=== PATIENT | female | born 1995 ===

== ENCOUNTER 2023-07-14 00:08 | Inpatient (IN) | payer BC ==
[2023-07-14] MEDS ORDERED: Ondansetron 4 MG/2 ML SDV IVPUSH PRN (00:39)
[2023-07-14] MEDS ORDERED: Sodium Chloride 0.9% 10 ML Syringe FLUSH PRN (00:39)
[2023-07-14] MEDS ORDERED: Methylergonovine 0.2 MG/1 ML Amp IM PRN (00:39)
[2023-07-14] MEDS ORDERED: Sodium Chloride 0.9% 20 ML SDV IV PRN (00:39)
[2023-07-14] MEDS ORDERED: Carboprost Tromethamine 250 MCG/1 mL Vial IM PRN (00:39)
[2023-07-14] MEDS ORDERED: Water For Irrigation,Sterile 1,000 ML Container IRR PRN (00:39)
[2023-07-14] MEDS ORDERED: Sodium Chloride 0.9% 2.5 ML Syringe FLUSH PRN (00:39)
[2023-07-14] MEDS ORDERED: Lidocaine 1% 50 ML MDV INJECT PRN (00:39)
[2023-07-14] MEDS ORDERED: Misoprostol 200 MCG Tab PO PRN (00:39)
[2023-07-14] MEDS ORDERED: Tranexamic Acid IN NACL,ISO-OS 1,000 MG in Premix Bag 1 BAG IV PRN (00:39)
[2023-07-14] MEDS ORDERED: Terbutaline 1 MG/ML SDV SUBCUT PRN (00:42)
[2023-07-14] MEDS ORDERED: Misoprostol 25 MCG (1/4 of 100 MCG) Tab VAG PRN (00:42)
[2023-07-14] MEDS ORDERED: Oxytocin/0.9 % Sodium Chloride 30 UNIT/500 ML BAG IV SCH (00:45)
[2023-07-14 01:02] LABS: HEMATOCRIT 36.5 % (37.0-47.0); HEMOGLOBIN 12.1 g/dL (12.0-16.0); MEAN CORPUSCULAR HEMOGLOBIN 26.2 pg (28.0-32.0); MEAN CORPUSCULAR HGB CONC 33.2 g/dL (32.0-36.0); MEAN CORPUSCULAR VOLUME 79.2 fL (83.0-99.0); MEAN PLATELET VOLUME 11.4 fL (9.4-12.3); PLATELET COUNT,PLT 266 K/uL (150-400); RED BLOOD CELL COUNT 4.61 M/uL (4.10-5.30); WHITE BLOOD CELL COUNT,WBC 8.46 K/uL (3.9-11.3)
[2023-07-14] MEDS: Lactated Ringers 1,000 ML IV SCH (01:15)
[2023-07-14] MEDS: Oxytocin/0.9 % Sodium Chloride 30 UNIT/500 ML BAG IV SCH (02:40)
[2023-07-14] MEDS: Butorphanol 2 MG/ML SDV IVPUSH PRN (03:14)
[2023-07-14] MEDS: Ropivacaine HCl/PF 400 MG in Premix Bag 1 BAG EPIDUR SCH (05:28)
[2023-07-14] MEDS ORDERED: ePHEDrine 50 MG/ML SDV IVPUSH PRN ×2 (05:39)
[2023-07-14] MEDS ORDERED: Phenylephrine HCl In 0.9% NaCl 1 MG/10 ML Syringe IVPUSH PRN (05:39)
[2023-07-14] MEDS ORDERED: Docusate Sodium 100 MG Cap PO PRN (09:30)
[2023-07-14] MEDS ORDERED: oxyCODONE 5 MG Tab PO PRN (09:30)
[2023-07-14] MEDS: Bupivacaine 0.5% 10 ML SDV ONE (09:52)
[2023-07-14] MEDS: Ropivacaine HCl/PF 200 ML ONE (09:53)
[2023-07-14] MEDS: Phenylephrine HCl In 0.9% NaCl 1 MG/10 ML Syringe ONE (09:53)
[2023-07-14 10:01] LABS: PH,UMBILICAL ARTERIAL 7.205 (7.18-7.38); PH,UMBILICAL VENOUS 7.251 (7.25-7.45)
[2023-07-14] MEDS: Witch Hazel Medicated Pads 40/Jar TOP PRN (16:16)
[2023-07-14] MEDS: Benzocaine/Menthol 20%-0.5% Spray 78 GM Cannister TOP PRN (16:16)
[2023-07-14] MEDS: Ibuprofen 800 MG Tab PO PRN (16:16)
[2023-07-14] MEDS: Lanolin 100% Cream 7 GM Tube TOP PRN (16:16)
[2023-07-14] MEDS: Acetaminophen 500 MG Tab PO PRN (19:01)
[2023-07-15 05:34] LABS: HEMATOCRIT 30.8 % (37.0-47.0); HEMOGLOBIN 10.2 g/dL (12.0-16.0)
[2023-07-15 05:59] LABS: CALCIUM 8.3 mg/dL (8.5-10.1); CREATININE 0.4 mg/dL (0.6-1.0); EST CRCL DRUG DOSING (CG) 187.91 mL/min; POTASSIUM,K 3.2 mmol/L (3.5-5.1)
== END 2023-07-15 13:22 | disposition home or self-care (01) | DRG 560 ==
LOC: MW.OBCHECK 00:08 → MW.OB 00:14 → MW.OBCHECK 09:14 → MW.OB 09:16 → OBSVTOIN 09:34 → MW.OB 14:56
PROVIDERS: ADMIT Obstetrics & Gynecology; ATTEND Obstetrics & Gynecology
PROC: 10E0XZZ Delivery of Products of Conception, External Approach (ICD-10-PCS; principal; 2023-07-14)
PROC: 0KQM0ZZ Repair Perineum Muscle, Open Approach (ICD-10-PCS; 2023-07-14)
PROC: 10907ZC Drainage of Amniotic Fluid, Therapeutic from Products of Conception, Via Natural or Artificial Opening (ICD-10-PCS; 2023-07-14)
PROC: 3E033VJ Introduction of Other Hormone into Peripheral Vein, Percutaneous Approach (ICD-10-PCS; 2023-07-14)
PROC: 3E0R3BZ Introduction of Anesthetic Agent into Spinal Canal, Percutaneous Approach (ICD-10-PCS; 2023-07-14)
PROC: 00HU33Z Insertion of Infusion Device into Spinal Canal, Percutaneous Approach (ICD-10-PCS; 2023-07-14)
DX: O24.420 Gestational diabetes mellitus in childbirth, diet controlled (principal); Z37.0 Single live birth; O70.1 Second degree perineal laceration during delivery; Z3A.39 39 weeks gestation of pregnancy
CPT/HCPCS: 36415; 51702; 59025; 59300; 59409; 80048; 82803; 82947; 85014; 85018; 85027; 86592; 86850; 86900; 86901; A9270-GY; J0595; J0665; J2371; J2590; J2795; J7120